=== PATIENT | male | born 1995 | race African-American/Black ===

== ENCOUNTER 2018-08-29 12:06 | Emergency (ER) | payer SELFPAY ==
[~2018-08-29] VITALS: Ht 167.6 cm; Wt 64.0 kg
[2018-08-29 13:38] VITALS: BP 122/90
== END 2018-08-29 15:49 | disposition left against medical advice (07) ==
LOC: ER 12:50
DX: R07.89 Other chest pain (principal); R42 Dizziness and giddiness; R53.1 Weakness; M79.602 Pain in left arm; Z53.21 Procedure and treatment not carried out due to patient leaving prior to being seen by health care provider